=== PATIENT | male | born 1995 | race Caucasian/White ===

== ENCOUNTER 2020-07-08 18:04 | Emergency (ER) | payer MEDICAID ==
[~2020-07-08] VITALS: Ht 180.3 cm; Wt 82.0 kg
[2020-07-08] MEDS ORDERED: IBUPROFEN 600MG TABLET PO ONE (18:30)
[2020-07-08] MEDS ORDERED: TETANUS, DIPHTHERIA, PERTUSSIS VAC/PF 0.5ML (>7YR OLD) IM ONE (18:30)
[2020-07-08] MEDS ORDERED: LIDOCAINE HCL/EPINEPHRINE 1%-EPI 1:100,000 10 ML VIAL IJ ONE (18:30)
[2020-07-08 19:55] VITALS: BP 125/70
== END 2020-07-08 21:58 | disposition home or self-care (01) ==
LOC: ER 18:04
DX: S81.811A Laceration without foreign body, right lower leg, initial encounter (principal); W18.39XA Other fall on same level, initial encounter; Y93.89 Activity, other specified; Y92.89 Other specified places as the place of occurrence of the external cause; Y99.8 Other external cause status
CPT/HCPCS: 12002; 73590; 90471; 90715; 99283; J3490; Z7610